=== PATIENT | male | born 1940 | race Hispanic/Latino ===

== ENCOUNTER 2020-08-22 12:21 | Outpatient (CLI) | payer MEDICARE, OTHER ==
[~2020-08-22 12:21] MED LIST: Magnevist 469MG/ML 20 ML VIAL ONE
== END 2020-08-22 12:22 | disposition home or self-care (01) ==
LOC: BICMRI 12:21
PROVIDERS: ATTEND Obstetrics & Gynecology
DX: R41.3 Other amnesia (principal); R46.89 Other symptoms and signs involving appearance and behavior; I67.82 Cerebral ischemia
CPT/HCPCS: 70553; 82565; A9579

== ENCOUNTER 2023-04-30 13:40 | Outpatient (CLI) | payer MEDICARE | END 2023-04-30 13:41 | disposition home or self-care (01) | LOC: BICULT 13:40 | PROVIDERS: ATTEND Internal Medicine Nephrology | DX: I12.9 Hypertensive chronic kidney disease with stage 1 through stage 4 chronic kidney disease, or unspecified chronic kidney disease (principal); N18.9 Chronic kidney disease, unspecified; N28.1 Cyst of kidney, acquired; N28.89 Other specified disorders of kidney and ureter; R93.41 Abnormal radiologic findings on diagnostic imaging of renal pelvis, ureter, or bladder | CPT/HCPCS: 76770 ==

== ENCOUNTER 2024-06-01 13:30 | Outpatient (CLI) | payer MEDICARE | END 2024-06-01 13:31 | disposition home or self-care (01) | LOC: ULT 13:30 | PROVIDERS: ATTEND Internal Medicine Nephrology | DX: I12.9 Hypertensive chronic kidney disease with stage 1 through stage 4 chronic kidney disease, or unspecified chronic kidney disease (principal); N18.9 Chronic kidney disease, unspecified; N26.1 Atrophy of kidney (terminal); N28.1 Cyst of kidney, acquired | CPT/HCPCS: 76770 ==